=== PATIENT | female | born 1945 | race Caucasian/White ===

== ENCOUNTER 2017-01-05 08:00 | Inpatient (IN) | payer MEDICARE, OTHER ==
[~2017-01-05] VITALS: Ht 157.5 cm; Wt 95.0 kg
--- NOTE | ~2017-01-05 | OR ---
PATIENT'S NAME: TOMÁS CANCHOLA [facility] AGE: 71 Y [address] ROOM: [place] [address] LOCATION: [facility] ADMIT DATE: 01/10/2017 OR/Procedure Report DISCHARGE DATE: FAMILY PHYSICIAN: Madhuri Dumont MD ATTENDING PHYSICIAN: OMI BILLY SURGEON: Omi Billy MD TWILL CUTTER: Prakash Urrutia PA-C An general office assistant was necessary during the entire case. The general office assistant helped with positioning the limb in space, soft-tissue retraction, its exposure, implant placement, and wound closure. DATE OF PROCEDURE: 01/10/2017 PREOPERATIVE DIAGNOSES: 1. Right shoulder degenerative joint disease. 2. Massive rotator cuff tear status post rotator cuff repair. POSTOPERATIVE DIAGNOSIS: Massive rotator cuff re-tear with end-stage glenohumeral osteoarthritis. PROCEDURES PERFORMED: 1. Right reverse total shoulder arthroplasty using the Tornier Aequalis- Reversed II system. 2. Open biceps tenodesis. ANESTHESIA: General. DRAINS: None. SPECIMENS: None. COMPLICATIONS: None. ESTIMATED BLOOD LOSS: 200 mL. INDICATIONS FOR PROCEDURE: Tomás Canchola is a 71-year-old female. She presented to my clinic with right shoulder pain. X-ray showed advanced glenohumeral osteoarthritis with metal anchors in place in the greater tuberosity. She had decent active and passive range of motion, but she was very weak. She was having significant pain at night. MRI showed a failed rotator cuff repair with evidence of atrophy. We talked about continued conservative treatment with injections, anti-inflammatories, and physical therapy. We also talked about the role of arthroplasty. We talked about the risk of bleeding, infection, damage to surrounding structures including blood vessels, and nerves in addition to potential need for future surgery. We also PATIENT'S NAME: TOMÁS CANCHOLA [facility] AGE: 71 Y [address] ROOM: [place] [id number] LOCATION: [facility] ADMIT DATE: 01/10/2017 OR/Procedure Report DISCHARGE DATE: FAMILY PHYSICIAN: Madhuri Dumont MD ATTENDING PHYSICIAN: OMI BILLY talked about the risk of general anesthesia including heart attack, stroke, pneumonia, and . Given her significant pain at night and in fact, it was not responding to conservative treatment, she elected to proceed with surgery. DESCRIPTION OF PROCEDURE: A surgical marking pen was used to correctly identify the right shoulder as the surgical site. Consent was signed and dated. She was taken back to the operating suite and placed supine on the OR table. She underwent general endotracheal induction and intubation. Time-out was called by myself. During the time-out, the patient, the procedure to be performed, the dosing of the preoperative antibiotics, and the postoperative plan was reviewed by everyone in the room. The patient was then positioned in a beach chair position. All bony prominences were well padded. The right upper extremity was then prepped and draped in a standard sterile fashion. She had a prior open incision which was well healed. I used the inferior aspect of the rotator cuff incision and then extended that down to the deltopectoral groove. I dissected down through the skin and the subcutaneous tissue. The cephalic vein was identified. The cephalic vein was retracted laterally with the deltoid. The conjoined tendon was identified. It was retracted gently and medially. The bursa was excised. The subscapularis muscle was identified. I then identified the three sister vessels. I ligated the anterior, humeral, and circumflex vessels. I then released the upper 1 cm of the pectoralis tendon. I identified the bicipital groove. I opened up the bicipital tendon sheath. I isolated the long head of the biceps. Significant fluid was found within that biceps tendon sheath and the tendon was quite hemorrhagic and tendinopathic. I then placed a #2 Ortho cord stitch there in the upper border of that pectoralis tendon and using a [id number] stitch, I performed a soft-tissue tenodesis with the biceps. I felt very comfortable with the repair. I then released the biceps. I used the biceps to identify the rotator interval. I released the biceps out of that rotator interval. Once that was performed, I then peeled the subscapularis off the lesser tuberosity. Two #2 tag stitches were placed after I had peeled the subscapularis off. At this point, I was able to externally rotate the humeral head and dislocated from the glenoid. I was able to visualize a completely denuded humeral head as the supraspinatus and infraspinatus footprint were completely bare. I was able to visualize the sutures and some fibrous tissue with those sutures, but no evidence of any cuff tissue. I then removed the osteophytes from the anterior and inferior aspect of the humeral head. Significant cartilage wear was noted over the midportion of the humeral head surface. I then went ahead and performed a humeral head cut using the intramedullary guide from [employer]. I placed it in 20 degrees of version to match the patient's retroversion. After I had made the cut, I was able to visualize metal anchors there within that cut surface. I removed them with a rongeur. Nonabsorbable suture was also present there in that greater tuberosity which was removed with the rongeur. After I had performed my humeral head cut, I then sequentially sounded and broached up to a size 4 PATIENT'S NAME: TOMÁS CANCHOLA [facility] AGE: 71 Y [address] ROOM: [address] [address] LOCATION: [facility] ADMIT DATE: 01/10/2017 OR/Procedure Report DISCHARGE DATE: FAMILY PHYSICIAN: Madhuri Dumont MD ATTENDING PHYSICIAN: OMI BILLY flex. Placed a humeral protector over the trial stem. I then went ahead and exposed the glenoid. A 360-degree labral excision was performed. A capsular release was performed as well. Significant osteophyte was present anteriorly and inferiorly over the glenoid. Small amount of cystic changes were present there as I cleaned off any remaining cartilage, I did fall into a cyst right in the central aspect of that glenoid. I put the aiming guide in place. I passed the guide pin into the center-center position of the glenoid. It just so happened that it was kind of in the central aspect of that cyst that I fell into. For that reason, I tried to direct the guide pin slightly more anterior given that the cystic change. I then sequentially reamed over the top of the guide pin taking it down to a nice subchondral bone. I then drilled the central screw for the base plate. Measured it as a size of 24. For that reason, the threaded post base plate was screwed into position. I did pack some bone graft there into that cyst in the center aspect of the glenoid prior to threading the base plate into place. I was able to see the base plate did sit very nicely down onto that prepared bleeding glenoid. I then placed 3 locking screws into the base plate. A 4th was unable to be placed at the posterior aspect given the shortness of the drilled depth. I felt comfortable with the fixation of the glenoid base plate. I then impacted a centered glenoid sphere, 36 mm x 25 mm into position. Secured it using both the Venegas taper as well as the central screw. TUG test showed that it was very stable and there was no evidence of any looseness to the glenoid sphere. At that point, I turned my attention back to the humeral components. A trial reversed tray size 0 was placed. I was able to reduce the trial components from the humerus side took the shoulder through range of motion. The patient had 150 degrees of passive forward flexion. The patient had 60 degrees of external rotation and 40 degrees of internal rotation with the arm at the side without any evidence of impingement and I felt very comfortable with this range of motion parameters. For that reason, the trial humeral components were removed. Six drill holes were placed in the lesser tuberosity using a 2 mm drill bit. I then passed it through six #2 FiberWire sutures through those drill holes for repair of the subscapularis. The final implants which I consisted of Aequalis Ascend flex size 4B humeral stem, angle 132.5 degrees as well as a reversed tray with a 0 mm thickness and a centered component, and an ultra-high molecular weight insert was impacted in the 20 degrees of version based on the forearm. It sat very nicely against that prepared surface of the humerus. I was then able to again reduce the implant onto the glenoid sphere. Took it through range of motion and had the same parameters as I mentioned earlier. I then repaired the subscapularis after hemostasis had been confirmed. I repaired it with vertical mattress sutures in the subscapularis bringing the nerve very nicely down to the lesser tuberosity. I then again irrigated. Did not see any evidence of need for a drain. I then closed the fascia with an 0 Vicryl in a [id number] fashion. I then closed the skin with a 2-0 Vicryl, followed by a running 3-0 Monocryl followed by antonio. Dressings in the form of Xeroform, 4x4s, and a PATIENT'S NAME: TOMÁS CANCHOLA [facility] AGE: 71 Y [address] ROOM: [address] [address] LOCATION: G3 ADMIT DATE: 01/10/2017 OR/Procedure Report DISCHARGE DATE: FAMILY PHYSICIAN: Madhuri Dumont MD ATTENDING PHYSICIAN: OMI BILLY Tegaderm were applied. She was placed into a sling and transferred to the recovery room in stable condition where she was found to be neurovascularly intact and postoperative x-ray confirmed placement of the prosthesis. MD ЮЛИЯ REID/marlenel /[id number] d: 01/10/17 2211 t: 01/29/17 1358, OPERATIVE SUMMARY
[2017-01-05] MEDS ORDERED: LIPITOR80 MG PO (08:20)
[2017-01-05] MEDS ORDERED: OMEPRAZOLE40 MG PO (08:21)
[2017-01-05] MEDS ORDERED: CELEXA40 MG PO (08:21)
[2017-01-05] MEDS ORDERED: MOBIC15 MG PO (08:21)
[2017-01-05] MEDS ORDERED: RESTORIL30 MG PO (08:21)
[2017-01-05] MEDS ORDERED: CALCIUM 600 +1 EAC6 PO (08:22)
[2017-01-05] MEDS ORDERED: ASPIRIN LO-DOSE81 MG PO (08:23)
[2017-01-05] MEDS ORDERED: MULTI FOR HER1 EAC2 PO (08:23)
[2017-01-05] MEDS ORDERED: GLUCOSAMINE S1000 M1 PO (08:23)
[2017-01-11] MEDS ORDERED: TYLENOL EXTRA500 MG PO (09:30)
[2017-01-11] MEDS ORDERED: CELEBREX200 MG PO (09:31)
[2017-01-11] MEDS ORDERED: ASPIRIN EC81 MG PO (09:31)
[2017-01-11] MEDS ORDERED: OXYCONTIN15 MG PO (09:32)
[2017-01-11] MEDS ORDERED: DILAUDID 2MG(HYD2 MG PO (09:33)
[2017-04-04] MEDS ORDERED: MOBIC15 MG PO (09:38)
[2017-04-04] MEDS ORDERED: ULTRAM50 MG PO (09:40)
[2017-04-04] MEDS ORDERED: MELATONIN5 MG PO (09:51)
== END 2017-01-11 11:51 | disposition disaster alternative care site (69) | DRG 483 ==
LOC: G3N 01-10 08:12
PROVIDERS: ADMIT Orthopaedic Surgery Sports Medicine
PROC: 0RRJ00Z Replacement of Right Shoulder Joint with Reverse Ball and Socket Synthetic Substitute, Open Approach (ICD-10-PCS; principal; 2017-01-10)
PROC: 0LS30ZZ Reposition Right Upper Arm Tendon, Open Approach (ICD-10-PCS; principal; 2017-01-10)
DX: M19.011 Primary osteoarthritis, right shoulder (principal); M75.101 Unspecified rotator cuff tear or rupture of right shoulder, not specified as traumatic; E78.00 Pure hypercholesterolemia, unspecified; Z87.891 Personal history of nicotine dependence; Z90.49 Acquired absence of other specified parts of digestive tract
CPT/HCPCS: C1776; J0131; J0690; J1100; J2001; J2250; J2405; J3010; J7030; J7120

== ENCOUNTER → 2017-03-19 | Outpatient (CLI) | payer MEDICARE, OTHER ==
[~2017-03-19] MED LIST: ASPIRIN EC81 MG PO; ASPIRIN LO-DOSE81 MG PO; CALCIUM 600 +1 EAC6 PO; CELEBREX200 MG PO; CELEXA40 MG PO; DILAUDID 2MG(HYD2 MG PO; GLUCOSAMINE S1000 M1 PO; LIPITOR80 MG PO; MELATONIN5 MG PO; MOBIC15 MG PO; MULTI FOR HER1 EAC2 PO; OMEPRAZOLE40 MG PO; OXYCONTIN15 MG PO; RESTORIL30 MG PO; TYLENOL EXTRA500 MG PO; ULTRAM50 MG PO
== END ==
LOC: LKCL 13:20
DX: K59.1 Functional diarrhea (principal)

== ENCOUNTER → 2017-04-06 | Day surgery (SDC) | payer MEDICARE, OTHER ==
[~2017-04-06] VITALS: Ht 157.5 cm; Wt 91.5 kg
== END ==
LOC: GPOC 04-04 10:00 → GEND 07:42 → GPOC 10:00
PROC: 0DBG8ZX Excision of Left Large Intestine, Via Natural or Artificial Opening Endoscopic, Diagnostic (ICD-10-PCS; principal; 2017-04-06)
PROC: 0DBF8ZX Excision of Right Large Intestine, Via Natural or Artificial Opening Endoscopic, Diagnostic (ICD-10-PCS; 2017-04-06)
DX: K52.9 Noninfective gastroenteritis and colitis, unspecified (principal); D72.820 Lymphocytosis (symptomatic); K64.8 Other hemorrhoids; E78.5 Hyperlipidemia, unspecified; F32.9 Major depressive disorder, single episode, unspecified; M19.90 Unspecified osteoarthritis, unspecified site; Z90.49 Acquired absence of other specified parts of digestive tract; Z98.41 Cataract extraction status, right eye; Z98.42 Cataract extraction status, left eye; Z79.899 Other long term (current) drug therapy; Z96.651 Presence of right artificial knee joint; Z98.890 Other specified postprocedural states
CPT/HCPCS: J2001; J7030